=== PATIENT | female | born 1945 | race African-American/Black ===

== ENCOUNTER 2018-08-19 18:43 | Emergency (ER) | payer OTHER ==
[~2018-08-19] VITALS: Ht 165.1 cm; Wt 77.1 kg
--- NOTE | ~2018-08-19 | EKG ---
[facility] [place] [address] ELECTROCARDIOGRAM REPORT Name: EDE MOORE Room #: DEP [facility]#: [id number] Admission: 08/19/18 Attend Phys: Discharge: 08/19/18 Date of : 45 Report #: [id number] THIS REPORT FOR: //name// [facility] ED Test Date: 2018-08-19 Test Time: 19:01:50 Pat Name: EDE MOORE Department: Room: Gender: F Head Of Integrated Media: HODA : 1945 Requested By: Carlton Jackson Order Number: [id number] MD: Porfirio Leon Measurements Intervals [place] Rate: 67 P: 37 ND: 181 QRS: -24 QRSD: 103 T: 143 QT: 434 QTc: 458 Interpretive Statements Sinus rhythm Left atrial enlargement Borderline left axis deviation Abnrm T, consider ischemia, anterolateral lds No previous ECG available for comparison Electronically Signed On 08-20-2018 7:46:27 ROTOR CASTING MACHINE SETUP OPERATOR by Porfirio Leon [email or web address] <ELECTRONICALLY SIGNED> By: Porfirio Leon MD, [facility] 08/20/18 0746 1900 00 Porfirio Leon MD, FACC /EPI
[~2018-08-19 18:43] MED LIST: ACETAMINOPHEN325 M1 PO; AVONEX PEN30 MCG/0.1; BISACODYL SUPP10 MG RECTAL; CARBAMAZEPINE200 M6 PO; COLACE100 MG PO; FISH OIL 1,0001 EAC5 PO; IBUPROFEN 200200 M1 PO; MIRALAX255 GM PO; MULTIVITAMINS1 EAC7 PO; NEURONTIN 400400 M1 PO; NEURONTIN800 MG PO; SIMVASTATIN40 MG PO
[2018-08-19] MEDS ORDERED: AMLODIPINE BESY10 MG PO (19:05)
[2018-08-19] MEDS ORDERED: BUMETANIDE0.5 MG PO (19:06)
[2018-08-19] MEDS ORDERED: CLONIDINE0.1 PO (19:06)
[2018-08-19] MEDS ORDERED: AZATHIOPRINE50 MG PO (19:06)
[2018-08-19] MEDS ORDERED: MILK OF MA2400 MG/10 PO (19:07)
[2018-08-19] MEDS ORDERED: LISINOPRIL20 MG PO (19:07)
[2018-08-19] MEDS ORDERED: XALATAN2.5 M1 OPHTHALMIC (19:07)
[2018-08-19] MEDS ORDERED: NUEDEXTA 20-101 EACH PO (19:08)
[2018-08-19] MEDS ORDERED: NORCO 10-325 T1 EACH PO ×2 (19:08→19:10)
[2018-08-19] MEDS ORDERED: PRAVACHOL80 MG PO (19:10)
[2018-08-19] MEDS ORDERED: ZETIA10 MG PO (19:11)
[2018-08-19] MEDS ORDERED: ROBITUSSIN COU118 M5 PO (19:11)
[2018-08-19 20:22] LABS: BASOPHILS 1.3 % (0.0-2.0); EOSINOPHILS 4.2 % (0.0-3.0); HEMATOCRIT 35.7 % (37.0-47.0); HEMOGLOBIN 11.6 gm/dL (12.0-15.0); LYMPHOCYTES 31.1 % (24.0-44.0); MCH 30.6 pg (26.0-34.0); MCHC 32.5 g/dL (28.0-37.0); PLATELET COUNT 231 thou/uL (150-400); POLYS 54.4 % (36.0-66.0); RDW 13.8 % (10.5-14.5); WBC 3.6 thou/uL (4.0-11.0)
[2018-08-19 20:29] LABS: ANION GAP 11 mmol/L (7-16); BUN 29 mg/dL (7-18); CALCIUM 9.5 mg/dL (8.5-10.1); CHLORIDE 104 mmol/L (98-107); CO2 25 mmol/L (21-32); CREATININE 1.1 mg/dL (0.6-1.0); GLUCOSE 105 mg/dL (74-106); POTASSIUM 4.2 mmol/L (3.5-5.1); SODIUM 140 mmol/L (136-145)
[2018-08-19 20:36] LABS: TROPONIN-I <0.06 ng/mL (<0.06)
[2018-08-19 22:52] VITALS: BP 140/93
== END 2018-08-19 22:52 | disposition home or self-care (01) ==
LOC: ER 18:43
PROVIDERS: Emergency Medicine
DX: R13.10 Dysphagia, unspecified (principal); R05 Cough; G35 Multiple sclerosis; I10 Essential (primary) hypertension; E78.5 Hyperlipidemia, unspecified; D64.9 Anemia, unspecified; Z79.899 Other long term (current) drug therapy; Z88.8 Allergy status to other drugs, medicaments and biological substances

== ENCOUNTER 2020-04-17 15:24 | Inpatient (IN) | payer OTHER ==
[~2020-04-17] VITALS: Ht 165.1 cm; Wt 71.0 kg
--- NOTE | ~2020-04-17 | HC ---
[facility] [place] [address] CONSULTATION Name: EDE MOORE Room #: 240- ADM IN M.R.#: [id number] Admission: 04/17/20 Attend Phys: Isidro Messer MD Discharge: Date of : 45 Report #: [id number] THIS REPORT FOR: cc: Torie Alatorre,Tom Rodriguez DO ~ CC: Isidro Alatorre DATE OF SERVICE: 04/25/2020 REQUESTING PHYSICIAN: Dr. Roger. CHIEF COMPLAINT: SARS-CoV-2. HISTORY OF PRESENT ILLNESS: The patient is a 75-year-old female, as you know, who presented initially on 04/17/2020 to the Emergency Department from her [facility] facility, [place], with fever. She had a known positive COVID-19 test. She has a history of multiple sclerosis and significant preexisting hemiparesis on the left side. She also has a history of what appears to be dementia related to this. In addition, she has a history of hydrocephalus. Upon presentation, she had characteristics of pneumonitis on her chest x-ray, had been started on antibiotics in the Emergency Department as well. Unfortunately, the patient progressed on to full ____ respiratory failure and additionally was found to have Gram-positive bacteremia. She also has acute kidney injury with hypernatremia. She is on tube feeding secondary to ventilatory support. Additionally, the patient has metabolic acidosis. Pulmonology evaluated and feels that her prognosis is poor, given her overall medical presentation and she remains full code. She has a durable power of senior attorney in her son, Kris. PAST MEDICAL HISTORY: Again, significant for multiple sclerosis, left hemiparesis. She additionally has a history of breast cancer, status post mastectomy. She has had hydrocephalus, anemia, hyperlipidemia, pseudobulbar affect and dysphagia. PAST SURGICAL HISTORY: Mastectomy and tubal ligation. SOCIAL HISTORY: Lives at [facility] with total care requirements; was previously responsive per her son on interview today; she would respond verbally and recognize family members. FAMILY HISTORY: Noncontributory to her present medical condition. ALLERGIES: BACLOFEN. [facility] [address] [place] [address] CONSULTATION Name: [facility] Room #: 240-P [facility] IN .R.#: [id number] Admission: 04/17/20 Attend Phys: Isidro Messer MD Discharge: Date of : 45 Report #: [id number] MEDICATIONS: As of current, vancomycin; was previously on cefepime, Lasix, NovoLog sliding scale, morphine, Versed, potassium chloride, lorazepam, Levophed, Lovenox, Lipitor, Zetia, clonidine, Tegretol, Norvasc. REVIEW OF SYSTEMS: Unobtainable due to her present medical condition. PHYSICAL EXAMINATION: VITAL SIGNS: Temperature 35.3, pulse 68, respirations 25, blood pressure 118/73, 96% on ventilatory support. GENERAL: The patient is not alert; I was doing a distance exam today due to COVID-19 and wished to preserve PPE. Per nursing staff, she has not been able to be alerted to verbal or touch stimuli. HEENT: Ventilatory tube in place. CARDIOVASCULAR: Appears to be in sinus rhythm on telemetry. Nursing staff report some mild edema. ABDOMEN: Does not appear to be significantly distended. LABORATORY DATA: Include hemoglobin 9.8, creatinine 2.1. ASSESSMENT AND PLAN: 1. Acute hypoxic respiratory failure. At this present time, the patient appears to be having no significant improvement on imaging per Pulmonology staff; I have reviewed her reports today, a little change in the imaging. Overall, she remains relatively stable on ventilatory support; however, I agree that she may have some significant difficulty coming off of the ventilator. I did discuss this briefly with son, Kris, who is durable power of senior attorney. He wishes to have daughter, Kianna, present as well to discuss. He is going to arrange for a family meeting over the phone to discuss her present condition and management going forward. I will update further when I have more information with regards to this. 2. Multiple sclerosis, advanced, with hemiparesis. Again, did discuss her preexisting medical conditions. She did have hemiparesis, was dependent for all of the ADLs, was responsive verbally and cognitively relatively intact. Depending on the quality of life discussion and overall advanced care planning, we will juvenile court judge what direction we take. We will discuss further all options at such meeting. I spent approximately 15 minutes in discussion of advanced care planning today. Thank you very much for this consultation. By: [id number] Tom Chavarria DO /nt
[2020-04-17 15:24] VITALS: BP 102/51
[~2020-04-17 15:24] MED LIST changes: +AMLODIPINE BESY10 MG PO; +AZATHIOPRINE50 MG PO; +BUMETANIDE0.5 MG PO; +CLONIDINE0.1 PO; +LISINOPRIL20 MG PO; +MILK OF MA2400 MG/10 PO; +NORCO 10-325 T1 EACH PO; +NUEDEXTA 20-101 EACH PO; +PRAVACHOL80 MG PO; +ROBITUSSIN COU118 M5 PO; +XALATAN2.5 M1 OPHTHALMIC; +ZETIA10 MG PO
[2020-04-17 15:52] LABS: URINE BLOOD 1+ (Negative); URINE CLARITY SL CLOUDY; URINE COLOR YELLOW; URINE GLUCOSE-RANDOM* NEGATIVE (Negative); URINE KETONES 1+ (Negative); URINE LEUKOCYTES-REFLEX NEGATIVE (Negative); URINE NITRITE-REFLEX NEGATIVE (Negative); URINE PROTEIN (DIPSTICK) 3+ (Negative); URINE SPECIFIC GRAVITY >= 1.030 (1.005-1.035); URINE UROBILINOGEN 0.2 E.U./dl (0.2-1.0)
[2020-04-17 15:54] LABS: ICTOTEST (BILI CONFIRMATORY) Negative (Negative); URINE BILIRUBIN NEGATIVE (Negative)
[2020-04-17 15:59] LABS: SQUAMOUS 0-3 Few /LPF (0-3)
[2020-04-17 16:00] LABS: AMORPHOUS URATES Moderate /LPF (None Seen); FINE GRANULAR CASTS 0-3 Few /LPF (None Seen); URINE RBC 3-10 Few /HPF (0-2); URINE WBC-REFLEX 0-5 Rare /HPF (0-5)
[2020-04-17 16:18] LABS: ABSOLUTE NEUTROPHILS 2.3 thou/uL (1.4-8.2); BASOPHILS 1.2 % (0.0-2.0); HEMATOCRIT 39.8 % (37.0-47.0); HEMOGLOBIN 13.2 gm/dL (12.0-15.0); LYMPHOCYTES 25.7 % (24.0-44.0); MCHC 33.2 g/dL (28.0-37.0); MCV 93.3 fL (80.0-100.0); MONOCYTES 10.1 % (1.0-8.0); PLATELET COUNT 180 thou/uL (150-400); RBC 4.26 mil/uL (4.20-5.00); RDW 13.5 % (10.5-14.5); WBC 3.7 thou/uL (4.0-11.0)
[2020-04-17 16:27] LABS: CALCIUM 8.9 mg/dL (8.5-10.1); POTASSIUM 3.6 mmol/L (3.5-5.1)
[2020-04-17 16:40] LABS: ALBUMIN 3.6 g/dL (3.4-5.0); TOTAL BILIRUBIN 0.3 mg/dL (0.2-1.0); TOTAL PROTEIN 7.7 g/dL (6.4-8.2); TROPONIN-I 0.21 ng/mL (<0.06)
--- NOTE | 2020-04-17 19:29 | NUR ---
DAUGHTER DANYA CALLED, GIVEN CONDITION UPDATED AND PLAN FOR ADMISSION [phone]
[2020-04-17 20:29] VITALS: BP 102/57
[2020-04-17 20:59] VITALS: BP 114/61
--- NOTE | 2020-04-17 21:11 | NUR ---
BLUE TOP COVID SWAB USED IN HOUSE SWABS ARE NOT AVAILABLE AT THIS TIME. PER CHARGE NURSE, MELISSA WHITE TO UTILIZE BLUE TOP
[2020-04-17 21:31] VITALS: BP 141/52
[2020-04-18 02:27] LABS: HEMATOCRIT 30.7 % (37.0-47.0); MCH 30.6 pg (26.0-34.0); MCHC 32.1 g/dL (28.0-37.0); MCV 95.6 fL (80.0-100.0); RBC 3.22 mil/uL (4.20-5.00); RDW 13.9 % (10.5-14.5); WBC 4.5 thou/uL (4.0-11.0)
[2020-04-18 02:29] LABS: CREATININE 1.4 mg/dL (0.6-1.0); MAGNESIUM 1.6 mg/dL (1.8-2.4)
[2020-04-18 02:31] LABS: CALCIUM 6.4 mg/dL (8.5-10.1)
[2020-04-18 02:32] LABS: POTASSIUM 2.9 mmol/L (3.5-5.1)
--- NOTE | 2020-04-18 02:35 | NUR ---
CRITICAL LAB VALUES FOR POTASSIUM OF 2.9, DELTA CALCIUM OF 6.4, AND DELTA HEMOGLOBIN OF 9.9. SHEET METAL TECHNICIAN OUTSIDE PHYSICAL DAMAGE APPRAISER, JOLEEN SINGH, NOTIFIED.
[2020-04-18 02:36] LABS: HEMOGLOBIN 9.9 gm/dL (12.0-15.0)
--- NOTE | 2020-04-18 03:29 | NUR ---
RECIEVED PT VIA GURNEY FROM ED , PT EYES OPEN WILL FOLLOW WHEN NAME CALLED , AT TIMES YELLING AND SCREAMING WHEN REPOSITION . DAUGHTER CALLED TO GET DATA BASE COMPLETED, ASSESSMENT COMPLETED. SKIN INTACT NO BREAKDOWN NOTED PT WITH SOILED BREIF. PT CLEAN AND FEMALE EXTERNAL CATHETER PLACED. LEGAL BILLING ANALYST SHOWS NSR SB 71-58. VSS AFREBILE. PT TO BE TURNED EVERY 2 HOURS. NORCO GIVEN FOR PAIN NEEDED.
[2020-04-18 04:03] VITALS: BP 101/57
[2020-04-18 06:31] LABS: HEMATOCRIT 39.1 % (37.0-47.0); MCH 30.9 pg (26.0-34.0); MCHC 32.7 g/dL (28.0-37.0); MCV 94.5 fL (80.0-100.0); RBC 4.14 mil/uL (4.20-5.00); WBC 6.4 thou/uL (4.0-11.0)
[2020-04-18 06:34] LABS: HEMOGLOBIN 12.8 gm/dL (12.0-15.0)
--- NOTE | 2020-04-18 09:10 | EKG ---
[facility] [place] [address] ELECTROCARDIOGRAM REPORT Name: EDE MOORE Room #: 362-P ADM IN M.R.#: [id number] Admission: 04/17/20 Attend Phys: Isidro Messer MD Discharge: Date of : 45 Report #: [id number] THIS REPORT FOR: cc: Torie Alatorre,Torie Krishnamurthy,Porfirio Morse MD [facility] ~ THIS REPORT FOR: //name// [facility] ED Test Date: 2020-04-17 Test Time: 15:54:20 Pat Name: EDE MOORE Department: Room: [facility] Gender: F Roof Truss Machine Tender: [facility] : 1945 Requested By: Mira Lyon Order Number: [id number] MD: Porfirio Leon Measurements Intervals [place] Rate: 65 P: 33 VA: 155 QRS: -33 QRSD: 113 T: 120 QT: 488 QTc: 508 Interpretive Statements Sinus rhythm Left axis deviation Abnormal R-wave progression, late transition Abnrm T, probable ischemia, anterolateral lds Prolonged QT interval Compared to ECG 08/19/2018 19:01:50 Prolonged QT interval now present T wave abnormality is still Electronically Signed On 04-18-2020 9:10:06 CDT by Porfirio Leon [email or web address] <ELECTRONICALLY SIGNED> By: Porfirio Leon MD, [facility] 04/18/20 0910 1554 1554 Porfirio Leon MD, [facility] /EPI
[2020-04-18 09:18] VITALS: BP 162/74
--- NOTE | 2020-04-18 13:25 | EKG ---
[facility] [place] [address] ELECTROCARDIOGRAM REPORT Name: EDE MOORE Room #: 362- ADM IN M.R.#: [id number] Admission: 04/17/20 Attend Phys: Isidro Messer MD Discharge: Date of : 45 Report #: [id number] THIS REPORT FOR: cc: Torie Alatorre,Torie Gimenez,Jose Drew MD ~ THIS REPORT FOR: //name// [facility] Test Date: 2020-04-18 Test Time: 11:30:49 Pat Name: EDE MOORE Department: Room: 362 P Gender: F Refrigeration Specialist: JEROD : 1945 Requested By: Sommer Oh Order Number: [id number] MD: Jose Richardson Measurements Intervals [place] Rate: 51 P: 43 AR: 156 QRS: -29 QRSD: 141 T: 155 QT: 517 QTc: 477 Interpretive Statements Sinus rhythm Atrial premature complex Probable left atrial enlargement LVH with secondary repolarization abnormality Compared to ECG 04/17/2020 15:54:20 Electronically Signed On 04-18-2020 13:25:26 CDT by Jose Richardson [email or web address] <ELECTRONICALLY SIGNED> By: Jose Richardson MD 04/18/20 1325 1130 1130 Jose Richardson MD /EPI
[2020-04-18 14:31] LABS: FERRITIN 614 ng/mL (8-252)
[2020-04-18 14:55] LABS: % SATURATION 14 % (20-39); IRON 15 ug/dL (50-170); TIBC 104 ug/dL (250-450)
--- NOTE | 2020-04-18 16:24 | NUR ---
INITIAL ASSESSMENT: Received consult. ALIZA reviewed chart and spoke with nursing and attending physician. Pt was admitted from [facility]. Pt placed in Enhanced Isolation. Pt's COVID test is positive. ID consulted. ALIZA spoke with pt's dtr, Kianna, via phone. Introduced role of ALIZA. Pt has lived at [facility] for about 3 years. Pt with hx of MS and is w/c bound. Pt requires assistance with ADLs. Pt's dtr is aware of pt's positive COVID test results. Confirmed plan is for pt to return to [facility] when medically stable. Clinical info to be faxed to [facility] tomorrow for review. ALIZA is following to assist as needed with discharge planning.
[2020-04-18 18:49] VITALS: BP 162/63
[2020-04-18 19:31] VITALS: BP 160/65
--- NOTE | 2020-04-18 19:58 | NUR ---
ASSESSMENT DOCUMENTED. VSS. SR/SB ON THE MONITOR. HR LOW 33. ASYMPTOMATIC. CARDIOLOGY NOTIFIED. EKG ORDERED. WILL CONTINUE TO MONITOR. NON BLANCHABLE REDNESS TO BUTTOCKS/COCCYX. TURN Q2. BOGGY HEELS NOTED. HEELS OFFLOADED USING PILLOWS. PT HAD LARGE BM DURING SHIFT. SPOKE WITH PT DAUGHTER R/T PT STATUS. PT RESTING IN BED WITH CALL LIGHT IN REACH. WILL CONINUE TO MONITOR.
--- NOTE | 2020-04-19 00:27 | NUR ---
PT RESTING IN BED. PT CONTRACTED L ARM, R HAND BILATERAL LEGS. STAFF REPOSITIONING PT IN BED. PRAFO BOOTS AND SCDS INTACT. FEMALE EXT CATHETER INTACT. IVF INTACT. PT COMPLIANT WITH HS MEDS AND INCONTINENCE CARES. GOOD EYE CONTACT, BLUNTED AFFECT AND PT VERBALIZES NEEDS, REQUESTED WATER AND DECLINED HS SNACK. LUNGS WITH WHEEZES. PTS DAUGHTER CALLED FOR UPDATE AND PROVIDED. BED ALARM ON.
[2020-04-19 03:43] VITALS: BP 160/74
--- NOTE | 2020-04-19 05:35 | NUR ---
PT YELLING OUT EARLY AM PROVIDED PRN FOR PAIN, PT SETTLED AND SLEPT. PT WARM TO THE TOUCH THIS AM. FEVER CONTNUES. PRN PROVIDED. ICE PACK COVERED WITH TOWELS TO BUE. IV ANTIBIOTICS CONTINUE.
[2020-04-19 06:00] LABS: HEMATOCRIT 34.2 % (37.0-47.0); HEMOGLOBIN 11.3 gm/dL (12.0-15.0); MCH 30.8 pg (26.0-34.0); MCHC 32.9 g/dL (28.0-37.0); MCV 93.5 fL (80.0-100.0); RBC 3.65 mil/uL (4.20-5.00)
[2020-04-19 06:22] LABS: CALCIUM 8.3 mg/dL (8.5-10.1); CREATININE 1.3 mg/dL (0.6-1.0); MAGNESIUM 2.3 mg/dL (1.8-2.4); POTASSIUM 4.1 mmol/L (3.5-5.1)
--- NOTE | 2020-04-19 11:40 | NUR ---
ASSESS PT WITH DR. CHOWDHURY AT BEDSIDE. PT HAD PULLED OUT IV AND HAD LARGE LOOSE BOWEL MOVEMENT. CLEAN PT AND PAGE IV TEAM TO START NEW IV. CRUSHED SOME OF PT'S MORNING MEDS WITH A PAIN PILL AND GAVE IN APPLESAUCE WHILE HOB WAS 90 DEGREES. PT APPEARED TO GAG AND VOMITED OUT PILLS. INSTRUCTED TO KEEP PT NPO AND HAVE SPEECH DO BEDSIDE SWALLOW. PT CAN NOT HAVE VIDEO SWALLOW EVALUATION UNTIL COVID NEGATIVE.
[2020-04-19 15:25] VITALS: BP 156/67
--- NOTE | 2020-04-19 16:05 | NUR ---
PAGED RESULTS OF VANCO TROUGH AND BLOOD CULTURE TO DR. WELLS.
[2020-04-19 16:58] VITALS: BP 122/67
--- NOTE | 2020-04-19 17:20 | NUR ---
ALIZA reviewed chart and spoke with nursing and attending physician. Pt in Enhanced Isolation due to COVID-19. Pt febrile and is on IV abx. ALIZA faxed clinical info/COVID test results to [facility] for review. ALIZA spoke with Brittney in admissions. Update provided. Per Brittney, pt tested negative at the facility. Facility is requesting pt have a negative COVID test prior to returning. ALIZA spoke with pt's dtr, Kianna, via phone to provide update. Pt's dtr states that pt uses CBD oils at the facility for pain mgmt. Pt's dtr asked if family could bring the CBD oils to the hospital for put to use. ALIZA contacted attending physician. Will discuss regarding CBD oils. Plan is for pt to return to [facility] when medically stable. ALIZA is following to assist as needed with discharge planning.
[2020-04-19 19:29] VITALS: BP 140/69
--- NOTE | 2020-04-19 19:40 | NUR ---
PROVIDER NOTIFIED TEMP 102.2 AXILLARY VERY HOT TO THE TOUCH , WILL PROVIDE PRN TYLENOL, START PPN. PT NOTED INCREASE CONFUSION AND ON O2 PER NC TODAY. OFFERED FLUIDS AND SIPS ACCEPTED. TEMP IN ROOM DECREASED, BLANKETS OFF, LIGHTS OFF. WILL UPDATE ID WHEN HE ROUNDS THIS EVENING, PER PROVIDER REQUEST.
--- NOTE | 2020-04-19 21:22 | NUR ---
TEMP DECREASED 99.[address] DID NOT ROUND LEFT VOICE MAIL.
--- NOTE | 2020-04-19 21:41 | NUR ---
PT RESTING IN BED COMPLIANT WITH VS AND ASSESSMENT. IVF INTACT. PPN STARTED. O2 PER NC LUNGS WHEEZES. PT HAS COUGH. PT VERY HOT TO THE TOUCH AND ROOM TEMP ALTERED, LINENS REMOVED PRN TYLENOL PROVIDED AND EFFECTIVE. FEMALE EXT CATHETER INTACT. URINE EVAN. PT OPENS EYES TO MOVEMENT IN ROOM AND HER NAME. PT ANSWERS QUESTIONS REGARDING WANTING FLUID OR TV ON. PT YELLING OUT AND GROANING WITHOUT ADL CARES BEING PROVIDED, AT TIMES PT IS ABLE TO BE VERBALLY DISTRACTED TO STOP REPETITIVE YELLING. PRN FOR PAIN HAD ALREADY BEEN PROVIDED. PRAFO AND SCDS INTACT, LOVENOX PROVIDED. PT HAS LEJ IV STARTED BY IV TEAM, WILL HAVE DAY SHIFT F/U FOR ADDITIONAL IV SINCE PT ALSO HAS ANTIBIOTICS AND PPN. BED ALARM ON.
--- NOTE | 2020-04-19 22:22 | NUR ---
ORDERS OBTAINED FROM DR WELLS. CALLED DAUGHTER DANYA MOORE AND OBTAINED PERMISSION TO INITIATE REMDESIVIR IV MEDICATION.
--- NOTE | 2020-04-20 01:54 | NUR ---
PT HAD ONLY ONE IV AND MULTIPLE ANTIBIOTICS AND PPN. AFTER MULTIPLE ATTEMPTS, TWO ADDITIONAL IVS WERE ABLE TO BE OBTAINED TONIGHT SO THAT ALL MEDICATIONS WERE ABLE TO BE GIVEN.
[2020-04-20 03:15] VITALS: BP 158/87
--- NOTE | 2020-04-20 03:58 | NUR ---
PT YELLING SCREAMING REPETITIVELY, NOT ABLE TO BE REDIRECTED OR DISTRACTED PRN PROVIDED.
--- NOTE | 2020-04-20 04:04 | NUR ---
PTS DAUGHTER CALLED FOR UPDATE, ASKED AGAIN FOR NAME OF REMDESIVIR. ASKED IF PT WAS RECEIVING HER PREVIOUS FACILITY MEDS. DISCUSSED FOCUS ON COVID AND INFECTION MEDICATIONS, THAT PRN PAIN MEDICATIONS ARE AVAILABLE.
[2020-04-20 07:59] VITALS: BP 164/104
--- NOTE | 2020-04-20 16:18 | NUR ---
ALIZA reviewed chart and spoke with nursing. Pt remains in Enhanced Isolation due to COVID-19. Pt febrile and continues on IV abx. Pt on 2L of O2. ALIZA faxed updated clinical info to [facility] for review. ALIZA spoke with pt's dtr, Kianna, via phone. Kianna requests a conference call with ALIZA. She would like for her brother to also get update from ALIZA. Plan for conference call tomorrow morning between [phone]. ALIZA requested attending physician contact pt's dtr also to discuss use of CBD oils. ALIZA is following to assist as needed with discharge planning.
[2020-04-20 17:33] VITALS: BP 153/87
[2020-04-20 17:44] LABS: URINE BILIRUBIN NEGATIVE (Negative); URINE BLOOD 3+ (Negative); URINE CLARITY CLEAR; URINE COLOR YELLOW; URINE GLUCOSE-RANDOM* NEGATIVE (Negative); URINE KETONES NEGATIVE (Negative); URINE LEUKOCYTES-REFLEX NEGATIVE (Negative); URINE NITRITE-REFLEX NEGATIVE (Negative); URINE PROTEIN (DIPSTICK) 3+ (Negative); URINE SPECIFIC GRAVITY >= 1.030 (1.005-1.035); URINE UROBILINOGEN 0.2 E.U./dl (0.2-1.0)
--- NOTE | 2020-04-20 17:49 | NUR ---
ASSUMED PATIENT CARE THIS AM AT APPROXIMATELY 0700. PATIENT AWAKE BUT LETHARGIC THIS SHIFT. VERY POOR PO INTAKE THIS SHIFT. ATTEMPTED TO FEED PATIENT AT EVERY MEALTIME BUT WAS REPEATEDLY NEEDING TO BE PROMPTED TO OPEN EYES AND SWALLOW FOOD. OFFERED PATIENT FLUIDS WITH ROUNDING. IV PPN ONGOING, BLOOD GLUCOSE STABLE. SPOKE WITH PATIENT DAUGHTER VIA TELEPHONE TO UPDATE ON PLAN OF CARE. DAUGHTER ASKING ABOUT RESTARTING HER MS MEDICATIONS, GABAPENTIN/ AZATHIOPRINE. SPOKE WITH DR. BOND REGARDING MEDS AND STATED THAT HE WILL LOOK AT THEM BUT IS NOT RESTARTING AT THIS TIME BECAUSE HE DOES NOT WANT TO GIVE ANY MEDICATION THAT WILL AFFECT HER IMMUNE SYSTEM. WILL INFORM DAUGHTER. NO FEVER THIS SHIFT.
[2020-04-20 17:54] LABS: BACTERIA-REFLEX 1-9 Few /HPF (None Seen); CASTS None Seen /LPF (None Seen); CRYSTALS None Seen /LPF (None Seen); SQUAMOUS 0-3 Few /LPF (0-3); URINE RBC 0-2 Rare /HPF (0-2); URINE WBC-REFLEX 0-5 Rare /HPF (0-5)
[2020-04-20 21:18] VITALS: BP 160/95
[2020-04-21] VITALS (15 sets, daily range): BP systolic 109–173; BP diastolic 17–102
--- NOTE | 2020-04-21 04:02 | NUR ---
ASSUMED PT CARE AROUND 1930. NON-VERBAL. DISORIENTED X4. DOES NOT FOLLOW ANY VERBAL COMMANDS. NO S/S ACUTE DISTRESS NOTED OR REPORTED AT THIS TIME. WILL CONT TO MONITOR FOR ANY CHANGES IN CONDITION.
[2020-04-21 10:48] LABS: BE(vivo) -3.4 mmol/L (-2 to +3); HCO3 17.6 mmol/L (22.0-26.0); PO2 61.2 mmHg (80.0-100.0); sO2 93.9 % (92.0-98.0)
[2020-04-21 10:49] LABS: PCO2 23.1 mmHg (35.0-45.0)
--- NOTE | 2020-04-21 12:40 | NUR ---
ASSUMED CARE OF PT AT 0700. PT IN ACUTE RESP DISTRES. TAHYCARDIC, HR 110-120's. RESP 30-40's. HOSPITALIST NOTIFIED - ABG AND CXR ORDERED. PULM CONSULTED. ON FLOOR NOW. INSTRUCTED TO TRANSFER ICU PENDING BED AVAILABILITY. INITIATE BIPAP.
[2020-04-21 14:51] LABS: ABSOLUTE NEUTROPHILS 4.9 thou/uL (1.4-8.2); BASOPHILS 0.5 % (0.0-2.0); HEMATOCRIT 40.8 % (37.0-47.0); LYMPHOCYTES 7.7 % (24.0-44.0); MCH 31.1 pg (26.0-34.0); MCHC 34.1 g/dL (28.0-37.0); MCV 91.3 fL (80.0-100.0); MONOCYTES 7.3 % (1.0-8.0); PLATELET COUNT 223 thou/uL (150-400); POLYS 84.5 % (36.0-66.0); RBC 4.47 mil/uL (4.20-5.00); WBC 5.8 thou/uL (4.0-11.0)
[2020-04-21 14:54] LABS: HEMOGLOBIN 13.9 gm/dL (12.0-15.0)
[2020-04-21 15:11] LABS: D-DIMER 1.03 ug/mLFEU (0.19-0.50); FIBRINOGEN 509.2 mg/dL (210-360); INR 1.3
[2020-04-21 15:14] LABS: ALBUMIN 2.4 g/dL (3.4-5.0); CALCIUM 8.8 mg/dL (8.5-10.1); CREATININE 1.3 mg/dL (0.6-1.0); TOTAL BILIRUBIN 0.4 mg/dL (0.2-1.0); TOTAL PROTEIN 6.9 g/dL (6.4-8.2)
--- NOTE | 2020-04-21 16:17 | NUR ---
ALIZA reviewed chart and spoke with nursing and attending physician. Pt remains in Enhanced Isolation due to COVID-19. Pt was febrile yesterday. Pt on IV abx. ALIZA spoke with Brittney in admissions at [facility] to provide update. ALIZA spoke with both pt's son and dtr via phone conference call twice, earlier today. Pt's children had questions regarding pt's medications and goals for discharge. ALIZA explained criteria for [facility] to accept pt back: fever free and COVID test within 48 hours of discharge per Brittney. ALIZA explained that questions related to medications and treatment plan need to be discussed with physician. ALIZA provided dtr's contact info to attending physician. Pt to transfer to ICU due to change in condition. ALIZA is following to assist as needed with discharge planning.
--- NOTE | 2020-04-21 17:00 | NUR ---
PATIENT RECIEVED TRANSFER FROM INTO ICU ROOM 240 AT 1620. PLACED ON MONITOR. PPN INFUSING IN LEJ AND ZOSYN IN RT FOREARM. PARKS INSERTED AND AFTER PATIENT PLACED ON MONITORING. O2 INCREASED FROM 1.5 TO 3 L/NC. RESP RATE IN THE 40'S AND INCREASES WITH AGGITATION. MOANING BUT WILL TRACK AT TIMES. MONITOR SR TO SINUS TACH WITH SHORT BURST OF BIGEMINAL PVC'S NOTED.
--- NOTE | 2020-04-21 18:40 | NUR ---
SPOKE WITH FAMILY AT [facility] FOR PICC LINE INSERTION AND PLACING PATIENT ON BIPAP SHE BREATHING VERY RAPIDLY. EXPLAINED POC FOR PATIENT.
--- NOTE | 2020-04-21 19:30 | NUR ---
PATIENT PLACED ON BIPAP HER RESP RATE REMAINS ELEVATED. IV TEAM HERE TO INSERT PICC LINE WILL CONTINUE TO MONITOR.
--- NOTE | 2020-04-21 19:53 | NUR ---
RISK, BENEFITS, AND ALTERNATIVE TREATMENT DISCUSSED WITH THE PATIENT'S DPOA. TEACHING GIVEN RELATED TO POSSIBLE COMPLICATIONS SUCH BLEEDING, INFECTION, CLOT, OR VESSEL PERFORATION. INSTRUCTION GIVEN RELATED TO POSSIBLE CLABSI WITH LITERATURE LEFT IN THE ROOM. CONSENT OBTAINED WITH 2 AUTOMATIC DRILLING MACHINE OPERATOR'S WITNESSING. TRIPLE LUMEN PICC PLACED TO RUE BRACHIAL VEIN. ONE STICK AND NO COMPLICATIONS. PATIENT TOLERATED WELL. PICC TRIMMED TO 36 CM.
[2020-04-22] VITALS (38 sets, daily range): BP systolic 95–148; BP diastolic 31–110
--- NOTE | 2020-04-22 03:56 | NUR ---
ASSUMED CARE OF PATIENT AT 1900, PATIENT OPENS EYES WHEN NAME CALLED. SINUS TACHYCARDIA ON MONITOR. CURENTLY ON BIPAP, O2 SAT REMAINS ABOVE 90, INCREASED RESPIRATIONS DUE TO PAIN AND ANXIETY. PRN FENTANYL ALLEVIATES PAIN. PARKS PATIENT AND DRAINING. SPOKE WITH SON AND DAUGHTER AT 2200, UPDATED ON PATIENT'S STATUS. NO SIGN OF ACUTE DISTRESS NOTED AT THIS TIME. WILL CONTINUE TO MONITOR.
--- NOTE | 2020-04-22 10:14 | NUR ---
Nutrition: PPN D/C'ed on transfer to ICU. Pt with little to no prior oral intake on acute. If remains on BIPAP, consider TPN at 75 mL/hr to meet needs. If pt requires intubation REC Jevity 1.5 at 50 mL/hr.
--- NOTE | 2020-04-22 11:22 | NUR ---
not anticipated dc over weekend, unable to visit with pt via phone call rt soa and use of bipap. updates sent to [facility] yesterday.
[2020-04-22 11:55] LABS: CALCIUM 8.6 mg/dL (8.5-10.1); CREATININE 1.7 mg/dL (0.6-1.0); MAGNESIUM 2.1 mg/dL (1.8-2.4); POTASSIUM 3.7 mmol/L (3.5-5.1)
--- NOTE | 2020-04-22 19:15 | NUR ---
returned call to Kianna Castro, daughter and Kris. updated on pt status, intubation and sedation to allow her lungs to rest. family verbalized frustration that rn did not call them prior to intubation. family concerned that they are not able to be present to see her through the window. explained with sedation she is calm, resting on vent, resp unlabored. rn listened, acknowledged their frustration. rn informed them of urgent situation so care provided to their mother first. family called to speak with rn at shift change. rn unable to immediately to take call since providing care in pt room. call returned to Mildred per telephone conference. updated on current care and plan to allow pt to rest for next couple of days. questions answered to satisfaction.
[2020-04-23] VITALS (89 sets, daily range): BP systolic 78–167; BP diastolic 27–79
[2020-04-23 07:06] LABS: HEMATOCRIT 32.6 % (37.0-47.0); HEMOGLOBIN 10.8 gm/dL (12.0-15.0); MCH 30.6 pg (26.0-34.0); MCHC 33.1 g/dL (28.0-37.0); RBC 3.53 mil/uL (4.20-5.00); RDW 14.4 % (10.5-14.5); WBC 7.3 thou/uL (4.0-11.0)
[2020-04-23 07:07] LABS: MCV 92.5 fL (80.0-100.0)
[2020-04-23 07:16] LABS: CALCIUM 7.7 mg/dL (8.5-10.1); CREATININE 2.3 mg/dL (0.6-1.0)
[2020-04-23 07:23] LABS: POTASSIUM 2.8 mmol/L (3.5-5.1)
--- NOTE | 2020-04-23 19:19 | NUR ---
SOME PROGRESS MADE TOWARD GOALS. FIO2 DOWN TO .50 AFTER PEEP INCREASED TO 10. SEDATION CONTINUES AND PATIENT WITHDRAWLS TO PAIN, DOES NOT OPEN EYES OR FOLLOW COMMANDS. SR/SB ON MONITOR. LEVOPHED AT 3MCG/MIN MOST OF THE SHIFT, STANDBY AT 1630 AND WAS STILL ON STANDBY WHEN THIS NURSES SHIFT ENDED. ADEQUATE URINE OUTPUT. NO SKIN ISSUES
[2020-04-24] VITALS (73 sets, daily range): BP systolic 110–176; BP diastolic 50–91
[2020-04-24 06:56] LABS: HEMATOCRIT 28.7 % (37.0-47.0); HEMOGLOBIN 9.7 gm/dL (12.0-15.0); MCH 30.9 pg (26.0-34.0); MCHC 33.7 g/dL (28.0-37.0); MCV 91.9 fL (80.0-100.0); RBC 3.13 mil/uL (4.20-5.00); RDW 14.4 % (10.5-14.5); WBC 7.3 thou/uL (4.0-11.0)
[2020-04-24 07:09] LABS: CALCIUM 7.5 mg/dL (8.5-10.1); CREATININE 2.3 mg/dL (0.6-1.0); POTASSIUM 3.1 mmol/L (3.5-5.1)
[2020-04-25] VITALS (37 sets, daily range): BP systolic 101–167; BP diastolic 50–87
[2020-04-25 05:13] LABS: CALCIUM 7.6 mg/dL (8.5-10.1); CREATININE 2.3 mg/dL (0.6-1.0); POTASSIUM 3.1 mmol/L (3.5-5.1)
[2020-04-25 05:30] LABS: HEMATOCRIT 28.3 % (37.0-47.0); HEMOGLOBIN 9.8 gm/dL (12.0-15.0); MCH 31.5 pg (26.0-34.0); MCHC 34.5 g/dL (28.0-37.0); MCV 91.2 fL (80.0-100.0); RBC 3.11 mil/uL (4.20-5.00); RDW 14.4 % (10.5-14.5)
--- NOTE | 2020-04-25 06:51 | NUR ---
BATH THIS SHIFT. SEDATION VACATION AT 2051 FOR 8 MINUTES. PT PARTIALLY OPENS EYES, HAS POSITIVE COUGH AND GAG, FACIAL GRIMACE TO PAIN. PT RESTED WELL ALL NOC. 5 BEAT RUN OF VTACH ONCE THIS SHIFT. AFEBRILE. 1949. SPOKE TO PT'S DTR AND SON JIM. UPDATED THEM ON PT'S STATUS, VITAL SIGNS, AND MOST RECENT RESULT OF CHEST XRAY WHICH WAS UNCHANGED FROM THE PREVIOUS DAY'S IMPRESSION.
--- NOTE | 2020-04-25 09:33 | NUR ---
Recommend change in tube feed formula since pt also on propofol. Recommend Vital high protein at 60ml/hr Defer fluid needs to physician while pt on IVF
--- NOTE | 2020-04-25 13:55 | NUR ---
FAXED CLINICAL UPDATE TO [facility] SPOKE WITH JULIANA IN ADM SHE RECEIVED UPDATE. DP TO FOLLOW.
--- NOTE | 2020-04-25 14:56 | NUR ---
pt remains on vent and tf for nutritional support cm visited with daughter mona via phone call who placed cm on hold to add her brother to phone call noah. have not spoke with nurse, when took balloons for my moms bday today. " just like to speak with nurse"/noah and mona.
[2020-04-25 17:36] LABS: CALCIUM 7.8 mg/dL (8.5-10.1); CREATININE 2.1 mg/dL (0.6-1.0); POTASSIUM 3.5 mmol/L (3.5-5.1)
--- NOTE | 2020-04-25 19:42 | NUR ---
SPOKE WITH DAUGHTER DANYA AND UPDATED HER ON PATIENT CONDITION AND POC. SIGNS AND BALLOONS BROUGHT TO HOSPITAL FOR PATIENTS BIRTHDAY AND PLACED IN HER ROOM. FIO2 AT .30, PEEP 6. NO ISSUES WITH BLOOD PRESSURE. POTASSIUM REPLACEMENT CONTINUED TODAY WITH POTASSIUM AT 3.1 WITH MORNING DRAW. 40MEQ IV GIVEN AND RECHECKED, NOW 3.5. 4500 ML OF URINE OUT TODAY.
[2020-04-26] VITALS (24 sets, daily range): BP systolic 103–166; BP diastolic 45–84
--- NOTE | 2020-04-26 00:39 | NUR ---
ASSUMED CARE OF PATIENT AT 1900. VSS, NO S/S OF DISTRESS. MINIMAL RESPONSE ON SEDATION VACATION. NOT PROGRESSING TOWARDS POC GOALS.
[2020-04-26 05:55] LABS: HEMATOCRIT 28.5 % (37.0-47.0); HEMOGLOBIN 9.8 gm/dL (12.0-15.0); MCH 31.4 pg (26.0-34.0); MCHC 34.2 g/dL (28.0-37.0); MCV 91.7 fL (80.0-100.0); RBC 3.11 mil/uL (4.20-5.00); RDW 14.2 % (10.5-14.5); WBC 8.6 thou/uL (4.0-11.0)
[2020-04-26 06:23] LABS: CALCIUM 7.5 mg/dL (8.5-10.1); CREATININE 1.9 mg/dL (0.6-1.0); POTASSIUM 3.3 mmol/L (3.5-5.1)
--- NOTE | 2020-04-26 10:24 | NUR ---
PATIENT'S DAUGHTER CALLING AT 1023, RN UPDATED PATIENT AND EDUCATED DAUGHTER ABOUT POC. VS AND CURRENT MEDICATIONS DISCUSSED. DAUGHTER STATES SHE HAS A CALL WITH DR. BOND TODAY.
[2020-04-26 13:27] LABS: MAGNESIUM 1.2 mg/dL (1.8-2.4); POTASSIUM 3.2 mmol/L (3.5-5.1)
[2020-04-27] VITALS (23 sets, daily range): BP systolic 97–155; BP diastolic 48–84
--- NOTE | 2020-04-27 07:59 | NUR ---
PT ON PROPOFOL AT 30MCG. SEDATION VACAY AT 2202 FOR 10 MINUTES; PT HAS POSITIVE COUGH AND GAG REFLEX, OPENS EYES, FACIAL GRIMACES TO PAIN BUT DOESNT FOLLOW COMMANDS. PT IS AFEBRILE. HAD UNEVENTFUL NOC. PT IS STABLE, WILL CONTINUE TO MONITOR.
[2020-04-27 08:22] LABS: HEMATOCRIT 28.8 % (37.0-47.0); HEMOGLOBIN 9.7 gm/dL (12.0-15.0); MCH 30.9 pg (26.0-34.0); MCHC 33.7 g/dL (28.0-37.0); MCV 91.5 fL (80.0-100.0); PLATELET COUNT 214 thou/uL (150-400); RBC 3.15 mil/uL (4.20-5.00); RDW 14.5 % (10.5-14.5); WBC 10.1 thou/uL (4.0-11.0)
[2020-04-27 08:43] LABS: ABSOLUTE NEUTROPHILS 9.4 thou/uL (1.4-8.2)
[2020-04-27 08:44] LABS: PLATELET ESTIMATE NORMAL
[2020-04-27 08:52] LABS: CALCIUM 8.2 mg/dL (8.5-10.1); CREATININE 1.8 mg/dL (0.6-1.0); POTASSIUM 3.9 mmol/L (3.5-5.1)
--- NOTE | 2020-04-27 18:37 | NUR ---
ASSESSMENTS AND INTERVENTIONS DOCCUMENTED. PATIENT RESTING AT SHIFT CHANGE. NO MAJOR CHANGES THROUGH OUT SHIFT. DR. BAUER ROUNDING ON PATIENT. DR. BAUER CALLING WITH A FOLLOW UP ON POC. DR. BAUER SPEAKING TO FAMILY AND FAMILY WANTING TO SET UP A VIDEO CHAT TO ASSESS PATIENT'S STATUS. RN TO DISCUSS WITH ONCOMMING RN TO DISCUSS WITH DAY SHIFT RN ABOUT SETTING THAT UP WITH FAMILY. PATIENT IS NOT PROGRESSING TOWARDS GOALS AT THIS TIME. CPAP TRIAL NOT DONE THIS SHIFT.
[2020-04-28] VITALS (28 sets, daily range): BP systolic 63–192; BP diastolic 38–132
--- NOTE | 2020-04-28 02:34 | NUR ---
ASSUMED CARE OF PATIENT AT 1900. O2 SATS DROPPING, FIO2 INCREASED WELL PEEP. DR WHITE NOTIFIED. ORDERS TO DC FLUIDS AND GIVE LASIX ONE TIME STAT. NOT PROGRESSING TOWARDS POC GOALS.
[2020-04-28 05:02] LABS: CALCIUM 7.7 mg/dL (8.5-10.1); CREATININE 1.7 mg/dL (0.6-1.0); POTASSIUM 3.3 mmol/L (3.5-5.1)
[2020-04-28 05:59] LABS: HEMATOCRIT 27.7 % (37.0-47.0); HEMOGLOBIN 9.4 gm/dL (12.0-15.0); MCH 30.8 pg (26.0-34.0); MCHC 33.8 g/dL (28.0-37.0); MCV 91.2 fL (80.0-100.0); RBC 3.04 mil/uL (4.20-5.00); RDW 14.5 % (10.5-14.5); WBC 9.5 thou/uL (4.0-11.0)
--- NOTE | 2020-04-28 11:31 | NUR ---
Nutrition: REC Vital HP at 60 mL/hr now that enteral pump available. IVFs D/C. pt will need 100 mL H20 flush q 6 hrs to meet fluid needs.
[2020-04-28 11:56] LABS: HEMATOCRIT 26.5 % (37.0-47.0); HEMOGLOBIN 8.7 gm/dL (12.0-15.0)
--- NOTE | 2020-04-28 15:04 | NUR ---
0700-ASSUMED CARE OF PT.--VW 1130-CALLED PT'S DTR TO UPDATE. SPOKE W HER & PT'S SON.INFORMED THEM THAT WANTED TO VIDEO CONF W THEM IN THE PT ROOM. WAS COMING FROM ANOTHER HOSP & SHOULD BE HERE ~1230. SON INFORMED [facility] THAT I NEEDN'T BOTHER TO CALL AGAIN, HE WILL SPEAK W THE PHYSICIAN.ALSO STATED THAT IF COULD NOT VIDEO CONF 1245 NOT TO BOTHER-HE WAS GOING TO WORK AT 1300 & IT WOULD HAVE TO WAIT.--VW
--- NOTE | 2020-04-28 15:29 | NUR ---
SW reviewed chart and spoke with nursing. Pt in ICU and in Enhanced Isolation due to COVID-19. Pt is intubated. Palliative care physician consulted to discuss goals of care and treatment plan with family. Pt remains full code at this time. SW provided update to [place] [employer] technology coordinatorBrittney. ALIZA is following to assist as needed with discharge planning.
[2020-04-28 19:20] LABS: MAGNESIUM 2.1 mg/dL (1.8-2.4); POTASSIUM 4.1 mmol/L (3.5-5.1)
[2020-04-28 20:54] LABS: APTT 65.4 Seconds (24.5-32.8); INR 1.2; PROTIME 11.9 Seconds (9.3-11.4)
[2020-04-29] VITALS (24 sets, daily range): BP systolic 73–180; BP diastolic 20–139
[2020-04-29 03:45] LABS: HEMATOCRIT 25.4 % (37.0-47.0); HEMOGLOBIN 8.4 gm/dL (12.0-15.0); MCH 30.2 pg (26.0-34.0); MCV 91.6 fL (80.0-100.0); RBC 2.77 mil/uL (4.20-5.00); RDW 14.3 % (10.5-14.5); WBC 11.6 thou/uL (4.0-11.0)
[2020-04-29 03:53] LABS: CALCIUM 7.9 mg/dL (8.5-10.1); CREATININE 2.4 mg/dL (0.6-1.0)
--- NOTE | 2020-04-29 06:26 | NUR ---
ASSUMED CARE OF PATIENT AT 1900. WELDING TESTER SHOWING EXCESSIVE ECTOPY, O2 NEEDS INCREASING AT TIMES THROUGH THE NIGHT. RESTLESS. DR WHITE NOTIFIED, NEW ORDER FOR PROPOFOL OBTAINED. FAMILY CALLED, ABLE TO USE IPAD TO FACETIME THEIR MOM. ALL QUESTIONS ANSWERED. NOT PROGRESSING TOWARDS POC GOALS.
--- NOTE | 2020-04-29 15:43 | NUR ---
ALIZA reviewed chart. Discussed case with palliative care physician. Pt is in Enhanced Isolation due to COVID-19. Pt on ventilator support. Pt's code status changed to DNR with plans to do palliative extubation today. ALIZA updated Brittney at [facility]. ALIZA is available to assist as needed.
--- NOTE | 2020-04-30 03:31 | NUR ---
PATIENT STILL IN THE ROOM WHEN THIS RN CAME ON SHIFT. DAY NURSES ATTEMPTED TO REMOVE JEWELRY, UNSUCCESSFUL. THIS RN CALLED SON AND SPOKE WITH DAUGHTER IN LAW TO LET HER KNOW THAT RINGS WERE STILL ON PATIENT, AND TO SPEAK WITH MORTICIAN TO GET THEM BACK. DAUGHTER IN LAW VERBALIZED UNDERSTANDING.
== END 2020-04-29 17:55 | DRG 870 ==
LOC: ER 15:24 → ICU 19:43 → EROBS 19:43 → 3W 19:43 → ICU 04-21 15:56
PROVIDERS: Hospitalist; Internal Medicine Pulmonary Disease; Nurse Practitioner; Nurse Practitioner Family; Physician Assistant; Specialist; ADMIT Internal Medicine; ATTEND Internal Medicine
PROC: 5A09357 Assistance with Respiratory Ventilation, Less than 24 Consecutive Hours, Continuous Positive Airway Pressure (ICD-10-PCS; principal; 2020-04-21)
PROC: 02HV33Z Insertion of Infusion Device into Superior Vena Cava, Percutaneous Approach (ICD-10-PCS; principal; 2020-04-21)
PROC: 0BH17EZ Insertion of Endotracheal Airway into Trachea, Via Natural or Artificial Opening (ICD-10-PCS; 2020-04-22)
PROC: 5A1955Z Respiratory Ventilation, Greater than 96 Consecutive Hours (ICD-10-PCS; 2020-04-22)
PROC: 5A09357 Assistance with Respiratory Ventilation, Less than 24 Consecutive Hours, Continuous Positive Airway Pressure (ICD-10-PCS; 2020-04-22)
PROC: 0BC58ZZ Extirpation of Matter from Right Middle Lobe Bronchus, Via Natural or Artificial Opening Endoscopic (ICD-10-PCS; 2020-04-29)
PROC: 0BC48ZZ Extirpation of Matter from Right Upper Lobe Bronchus, Via Natural or Artificial Opening Endoscopic (ICD-10-PCS; 2020-04-29)
PROC: 0BC78ZZ Extirpation of Matter from Left Main Bronchus, Via Natural or Artificial Opening Endoscopic (ICD-10-PCS; 2020-04-29)
PROC: 0BCB8ZZ Extirpation of Matter from Left Lower Lobe Bronchus, Via Natural or Artificial Opening Endoscopic (ICD-10-PCS; 2020-04-29)
PROC: 0BC38ZZ Extirpation of Matter from Right Main Bronchus, Via Natural or Artificial Opening Endoscopic (ICD-10-PCS; 2020-04-29)
PROC: 0BC68ZZ Extirpation of Matter from Right Lower Lobe Bronchus, Via Natural or Artificial Opening Endoscopic (ICD-10-PCS; 2020-04-29)
PROC: 0BC88ZZ Extirpation of Matter from Left Upper Lobe Bronchus, Via Natural or Artificial Opening Endoscopic (ICD-10-PCS; 2020-04-29)
DX: A41.1 Sepsis due to other specified staphylococcus (principal); U07.1 COVID-19; J12.89 Other viral pneumonia; I21.4 Non-ST elevation (NSTEMI) myocardial infarction; J96.01 Acute respiratory failure with hypoxia; N17.9 Acute kidney failure, unspecified; N39.0 Urinary tract infection, site not specified; E87.0 Hyperosmolality and hypernatremia; B17.9 Acute viral hepatitis, unspecified; G81.14 Spastic hemiplegia affecting left nondominant side; R04.2 Hemoptysis; T85.698A Other mechanical complication of other specified internal prosthetic devices, implants and grafts, initial encounter; I10 Essential (primary) hypertension; E78.5 Hyperlipidemia, unspecified; G35 Multiple sclerosis; R47.02 Dysphasia; R65.20 Severe sepsis without septic shock; D50.0 Iron deficiency anemia secondary to blood loss (chronic); I95.9 Hypotension, unspecified; Z90.11 Acquired absence of right breast and nipple; Z92.21 Personal history of antineoplastic chemotherapy; Z88.8 Allergy status to other drugs, medicaments and biological substances; Z22.321 Carrier or suspected carrier of Methicillin susceptible Staphylococcus aureus; Z79.01 Long term (current) use of anticoagulants; Y83.8 Other surgical procedures as the cause of abnormal reaction of the patient, or of later complication, without mention of misadventure at the time of the procedure; Y92.230 Patient room in hospital as the place of occurrence of the external cause
CPT/HCPCS: 10078; 10203; 10879; 27000